=== PATIENT | female | born 1980 | race American Indian/Alaskan Native ===

== ENCOUNTER 2016-11-15 14:34 | Outpatient (CLI) | payer MEDICAID ==
--- NOTE | 2016-11-15 15:53 | Ultrasound Report ---
BILATERAL DIGITAL DIAGNOSTIC MAMMOGRAM with CAD and RIGHT BREAST ULTRASOUND: 11/15/16 CLINICAL: A right palpable periareolar mass which according to the patient has gotten smaller. COMPARISON:None. FINDINGS: The breasts are heterogeneously dense, which may obscure small masses.No mass, architectural distortion or suspicious calcifications . A targeted right breast ultrasound demonstrated an oval hypoechoic retroareolar mass at 12 o'clock measuring 1.0 x 1.0 x 0.7 cm. It is contiguous to the skin and the ultrasound morphology suggests benign sebaceous cyst. Ultrasound of the right axilla demonstrated 2 abnormal lymph nodes with minimal central fat measuring 1.0 x 0.8 x1.1 cm and 0.8 x 0.6 x 0.8 cm. IMPRESSION: A probably benign subareolar sebaceous cyst and probably benign reactive right axillary lymph nodes. BI-RADS CATEGORY: 3 - - Probably Benign RECOMMENDATION: Three-month followup with targeted right breast ultrasound. ACR BI-RADS MAMMOGRAPHIC CODES: 0 = Needs additional imaging evaluation; 1 = Negative; 2 = Benign; 3 = Probably benign; 4 = Suspicious; 5 = Malignant; 6 = Known biopsy-proven malignancy COMMENT: 1. Dense breast tissue, i.e., adenosis, fibrocystic changes, etc., may obscure an underlying neoplasm. 2. Approximately 10% of cancers are not detected with mammography. 3. A negative mammography report should not delay biopsy if a clinically suspicious mass is present. COMMENT: Patient follow-up letters are generated by our [employer] application.
== END 2016-11-15 14:35 | disposition home or self-care (01) ==
LOC: SPVWC 14:34
PROVIDERS: ATTEND Hospitalist
DX: N60.01 Solitary cyst of right breast (principal)
CPT/HCPCS: 76642; G0204; 77066